=== PATIENT | female | born 1930 | race Caucasian/White ===

== ENCOUNTER 2017-02-25 06:52 | Day surgery (SDC) | payer MEDICARE, OTHER ==
--- NOTE | 2017-02-13 18:22 | HP ---
HISTORY AND PHYSICAL: DATE OF ADMISSION/SURGERY: 02/25/17 PATIENT OF: Dr. Girma Huang. (DICTATED BY BRITTANY PHILLIPS) CHIEF COMPLAINT: Left inguinal hernia. HISTORY OF PRESENT ILLNESS: Ms. Deluca is a pleasant 86-year-old female who was referred to our office for evaluation of left groin swelling. The patient is known to our practice from prior hemorrhoid surgery a few years ago. She was recently seen by Dr. Dugan and was noted to have a swelling in the left groin area consistent with possible left inguinal hernia. The patient was referred to our office and was seen by Dr. Huang for surgical evaluation and possible repair of left inguinal hernia. The patient herself notes that she had swelling for years, possibly dating back since her total abdominal hysterectomy in the . She does recall that after the surgery, there was a small lump in the area that always located on the left groin. She denied ever having any associated pain with that swelling. Over the years, the swelling has gotten progressively bigger, but yet the patient still denies any complaints of pain, nausea, vomiting, weight loss, or changes in the bowel habits. She has had colonoscopies in the past, which was remarkable for diverticulosis only and no evidence of diverticulitis or any colonic masses. The patient was seen by Dr. Huang last week and a CT scan was ordered as well for further evaluation of the left groin mass. Her CT scan revealed a complex left inguinal hernia with dominant direct portion measuring up to 3 x 7 x 7 cm, appears to contain portion of the greater omentum within the hernia sac. There was also a suggestion of a small indirect component of the inguinal hernia as well, but no definite masses or lymphadenopathy noted. Given these findings on the CT scan, the patient returned to the office today to discuss left inguinal hernia repair. She denies any changes since her last visit here about a week ago. She has been active overall after she had her right meniscus repaired approximately a year ago. PAST MEDICAL HISTORY: Significant for: 1. Osteoporosis. 2. Vaginal atrophy. 3. Osteoarthritis with multiple orthopedic consultations and prior surgery in the past. PAST SURGICAL HISTORY: Significant for: 1. Hemorrhoidectomy. 2. Total hysterectomy back in the . 3. She also had right knee arthroscopy and meniscal repair followed by right partial knee replacement approximately a year ago. CURRENT MEDICATIONS: Her medications at home include: 1. Calcitonin 200 units 1 spray in each nares alternating. 2. Aspirin 81 mg once daily. 3. Centrum Silver. 4. Multivitamin once daily. 5. Ocuvite 1 cap p.o. daily. 6. Ibuprofen 200 mg 2 tabs 3 times a day as needed for pain. 7. Vagifem 10 mcg 2 tabs p.o. twice a week. 8. Oxybutynin 5 mg 1 tablet daily. ALLERGIES: She reports allergies to COUMADIN, SHELLFISH PRODUCTS, and BONINE. FAMILY HISTORY: She denies any family history of colorectal malignancies. SOCIAL HISTORY: The patient is . She lives alone. 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 She never smoked. Denies alcohol intake and caffeine intake is minimal. REVIEW OF SYSTEMS: See HPI. Otherwise negative. She denies any headache, dizziness, blurred vision, or syncope. She has been hard of hearing in the past years and she used a hearing aid on a regular basis, but denies any significant changes lately. No chest pain, shortness of breath, cough, wheezing , or dyspnea. She denies any abdominal pain, nausea, vomiting, or recent changes in the bowel habits. She has been trying to eat more fiber and drink more water. Denies any significant constipation. She admits to the left groin swelling for years, but denies any pain or other symptoms related to that. No dysuria, hematuria, or urinary frequency. PHYSICAL EXAMINATION GENERAL: She is a pleasant elderly female, appears healthy and younger than stated age, in no acute distress or discomfort today. VITAL SIGNS: Blood pressure of 116/60, pulse of 72, temperature of 97.6. She weighs 132 pounds on a 5 feet 5 inch frame with BMI of 21. HEENT: Sclerae anicteric. EOMs intact. PERRLA. Oropharynx is pink and moist with no exudate. NECK: Supple. Trachea midline. No cervical adenopathy or thyromegaly. LUNGS: Clear to auscultation bilaterally. HEART: Regular rate and rhythm. Normal S1, S2 without rubs, murmurs, or gallops. BACK: Normal curvature. No CVA tenderness. BREAST EXAM: Deferred at this time. ABDOMEN: Soft, nontender, nondistended. Left inguinal hernia with the patient standing, there is a noticeable soft tissue reducible bulge that is nontender on palpation. With the patient supine, this bulge is almost disappeared, but however, there is a palpable mass noted measuring approximately 15 x 5 cm that will likely represent incarcerated omentum as shown on the CT scan. Again, there is no evidence of adenopathy in the groin area and there are no hernias or masses on the right side. The area was nontender on palpation and no organomegaly was noted. There is an old lower midline scar from prior hysterectomy noted that is well healed. There was no evidence of ventral hernia there. EXTREMITIES: Without cyanosis, clubbing, or edema. RECTAL: Exam deferred at this time. NEUROLOGIC: Grossly intact. ASSESSMENT: An 86-year-old female with a large left inguinal hernia. PLAN: I went on and discussed with Ms. Deluca proceeding with surgery today. She seems to be well informed and all her questions were answered today. I reviewed the CT scan with her and discussed the surgery and anticipated recovery time. Risks include but not limited to infection, bleeding, injury to adjacent structure, or possibly injury of the bowels given the fact that there is incarcerated omentum, possibly bowel, in the area. She seems to understand and wishes to proceed. We will obtain baseline blood work and recent EKG for clearance. The patient was already seen by her primary care physician a week ago for medical clearance, and we will follow up with her accordingly after the surgery. BRITTANY PHILLIPS CC: Dr. Bertram Clay * [id number]/[facility] #: [id number] [facility] CENTERJin
[~2017-02-25 06:52] MED LIST: Famotidine IV* 10 MG/ML 2 ML (20 mg) IV ONE; NS 0.9% 1000 ML* 1,000 ML IV SCH
[2017-02-25] MEDS ORDERED: ceFAZolin 2 GM PREMIX(*) 2 GM/50 ML BAG IVPB ONE (06:56)
[2017-02-25] MEDS ORDERED: Famotidine IV* 10 MG/ML 2 ML (20 mg) ONE (06:56)
[2017-02-25] MEDS ORDERED: fentaNYL* 50 MCG/ML 2 ML VIAL (100 MCG VIAL) ONE (08:25)
[2017-02-25] MEDS ORDERED: KETAMINE HCL* 50 MG/ML 10 ML VIAL ONE (08:25)
[2017-02-25] MEDS ORDERED: Midazolam* 1 MG/ML 2 ML VIAL (2 MG) ONE (08:25)
[2017-02-25] MEDS ORDERED: fentaNYL* 50 MCG/ML 2 ML VIAL (100 MCG VIAL) IV PRN (08:33)
[2017-02-25] MEDS ORDERED: Ondansetron INJ* 2 MG/ML VIAL IV PRN (08:33)
[2017-02-25] MEDS ORDERED: oxyCODONE/Acetamin 5/325 MG* TAB PO PRN (08:33)
[2017-02-25] MEDS ORDERED: PROCHLORPERAZINE INJ 5 MG/ML 2 ML VIAL IV PRN (08:33)
[2017-02-25] MEDS ORDERED: Lidocaine 1% INJ* 10 MG/ML 30 ML SDV ONE (09:03)
[2017-02-25] MEDS ORDERED: Bupivacaine 0.5% W/EPI SDV* 30 ML VIAL ONE (09:03)
[2017-02-25] MEDS ORDERED: Propofol* 10 MG/ML 20 ML BTL IV PUSH ONE (09:39)
[2017-02-25] MEDS ORDERED: Dexamethasone IV* 4 MG/ML 1 ML (4 MG) ONE (09:39)
[2017-02-25] MEDS ORDERED: Lidocaine 2% PF * 5 ML VIAL ONE ×2 (09:39→09:40)
[2017-02-25] MEDS ORDERED: Ondansetron INJ* 2 MG/ML VIAL ONE ×2 (09:39→11:43)
[2017-02-25] MEDS ORDERED: Ketorolac INJ* 30 MG/ML 1 ML VIAL ONE (10:26)
--- NOTE | 2017-02-25 10:37 | PN ---
Progress Note - Progress Note Note: Brief Operative Note: Preop Dx: Left Inguinal Hernia Postop Dx: same; indirect w/ incarcerated omentum Procedure: open repair Left inguinal hernia w/ mesh; resection portion of omentum Anesthesia: local/MAC Surgeon: Sal Asst: BRITTANY Hollis EBL: none Fluids: 400 ml RL Drains: none Specimen: contents of hernia sac Findings: dictated
[2017-02-25] MEDS ORDERED: HYDROcodone/ACETAMIN 5-325 MG* 1 TAB PO PRN (10:39)
[2017-02-25 11:48] VITALS: BP 119/68
--- NOTE | 2017-02-26 03:40 | OP ---
OPERATIVE REPORT: DATE OF OPERATION: 02/25/17 - [facility] DATE OF : 30 SURGEON: Girma Huang MD. GENERATOR ASSEMBLER: BRITTANY Abel. ANESTHESIOLOGIST: Liam Coley MD. ANESTHESIA: Local MAC. PRE-OP DIAGNOSIS: Incarcerated left inguinal hernia. POST-OP DIAGNOSIS: Incarcerated left inguinal hernia. OPERATIVE PROCEDURE: Open left inguinal hernia repair with mesh. ESTIMATED BLOOD LOSS: Minimal. IV FLUIDS: Crystalloids. SPECIMEN: Hernia contents (omentum). DRAINS: None. COMPLICATIONS: None. COUNTS: The instrument, needle, and sponge counts were correct. DESCRIPTION OF PROCEDURE: The patient was brought to the operating room and placed on table supine. Sequential compression devices were placed in both lower extremities and intravenous sedation was administered. The left groin was prepped and draped in the usual sterile fashion and a time-out was performed. After the time-out was performed, the local anesthetic was infiltrated as a field block in the left groin. An oblique incision was then created approximately 6 cm long and subcutaneous tissues were divided with cautery and the external oblique aponeurosis was identified. Additional anesthetic was infiltrated beneath this and then the aponeurosis was opened along the line of its fibers through the superficial ring. There was a large mass within the inguinal canal, which was quite firm. The sac was thickened. More proximally, the contents of sac were very soft and it was at this point that the sac was opened with cautery and there was viable omentum encountered. The omentum was serially divided between Nina clamps and ligated with 2 absorbable ties. The specimen was then submitted to pathology. The peritoneal sac was then run back and forth with 3-0 Polysorb to close it and reduced beyond the deep ring and then a plug of polypropylene was fashioned by hand and placed within the deep ring and sutured to the overlying musculature with 2-0 Polysorb. An onlay patch was then fashioned as well and this was sutured to the pubic tubercle, the shelving edge of the inguinal ligament and the conjoint tendon with interrupted 2-0 Polysorb. In order to aid in the closure, the round ligament was clamped and divided and ligated with 2-0 Polysorb as well. The lateral portion of the mesh was tucked beneath the external oblique aponeurosis and then the aponeurosis was run, closed with 2-0 Polysorb. Nelson's was closed with 3-0 Polysorb in interrupted fashion and the skin was closed with 4-0 Monocryl in subcuticular fashion. Steri-Strips were applied with dry dressing. The patient tolerated the procedure well, was awakened and transferred to Recovery in stable condition. CC: Bertram Clay MD* [id number]/[facility] #: [id number] MTDD
== END 2017-02-25 12:09 | disposition home or self-care (01) ==
LOC: OR 06:52
PROVIDERS: ATTEND Surgery
DX: K40.30 Unilateral inguinal hernia, with obstruction, without gangrene, not specified as recurrent (principal); M81.0 Age-related osteoporosis without current pathological fracture; M19.90 Unspecified osteoarthritis, unspecified site; Z86.718 Personal history of other venous thrombosis and embolism
CPT/HCPCS: 88302; 88341; 88342; C1781; J0690; J1100; J1885; J2001; J2250; J2405; J2704; J3010

== ENCOUNTER 2017-04-29 06:23 | Day surgery (SDC) | payer MEDICARE, OTHER ==
[2017-04-29 06:52] VITALS: BP 116/62
[2017-04-29] MEDS ORDERED: Lidocaine 1% INJ* 10 MG/ML 30 ML SDV ONE (07:15)
[2017-04-29] MEDS ORDERED: ceFAZolin 2 GM PREMIX(*) 2 GM/50 ML BAG IVPB ONE (07:42)
--- NOTE | 2017-04-29 09:10 | RAD ---
HISTORY: Line placement COMPARISONS: None VIEWS:1: Single frontal portable view of the chest at 7:42 AM FINDINGS: LINES AND TUBES: A left-sided chest port is noted from subclavian approach with the tip overlying the superior vena cava. CARDIOMEDIASTINAL SILHOUETTE: The cardiomediastinal silhouette is normal for portable technique. PLEURA: The costophrenic angles are sharp. No pleural abnormalities are noted. LUNG PARENCHYMA: The lungs are clear. ABDOMEN: The upper abdomen is clear. There is no subphrenic gas. There is no appreciable pneumothorax. BONES AND SOFT TISSUES: Degenerative changes are noted. IMPRESSION: LINES AND TUBES ABOVE. NO ACTIVE CARDIOPULMONARY DISEASE.
--- NOTE | 2017-04-29 09:12 | RAD ---
INDICATION: chest port placement COMPARISONS: None relevant TECHNIQUE: Fluoroscopy was provided for a vascular access procedure. Total fluoroscopy time is: 10.9 seconds FINDINGS: Spot images demonstrate a left-sided chest port with tip overlying the superior vena cava IMPRESSION: FLUOROSCOPY WAS PROVIDED FOR A VASCULAR ACCESS PROCEDURE CPT II Codes: 6045F
--- NOTE | 2017-04-30 12:46 | OP ---
CC: Jeff Rodríguez MD; Bertram Clay MD * DATE OF OPERATION: 04/29/17 - [facility] DATE OF : 30 SURGEON: Dr. Girma Huang. BARKING MACHINE FEEDER: None. ANESTHESIA: 1% lidocaine plain used locally. 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 OPERATIVE PROCEDURE: PowerPort placement, left subclavian approach. ESTIMATED BLOOD LOSS: Minimal. IV FLUIDS: Crystalloids. SPECIMENS: None. DRAINS: None. COMPLICATIONS: None. COUNT: Instrument, needle, and sponge counts correct. DESCRIPTION OF PROCEDURE: The patient was brought to the operating room and placed on the table supine. The patient's neck and chest were prepped and draped in the usual sterile fashion and time-out was performed. Local anesthetic was infiltrated for a left subclavian approach and after several passes, the left subclavian vein was accessed. Guidewire was positioned under fluoroscopic guidance into the superior vena cava. Additional local anesthetic was infiltrated into the left upper chest to create the subcutaneous pocket and counterincision was made at the insertion site. An 8- Turkish PowerPort catheter was backed down to the pocket and then the peal-away sheath and dilator were advanced over the guidewire into the superior vena cava under fluoroscopic guidance. The dilator and guidewire were removed and the catheter was advanced into the superior vena cava and then the catheter was cut to an appropriate length, connected to the PowerPort which was placed into the pocket. The port was drawn and flushed easily. The port was secured to the muscle with 2-0 Surgipro and then the incisions were closed in two layers with 3 -0 Polysorb for the subcutaneous tissues and 4-0 Monocryl for the skin. Steri- strips were applied and the access needle was placed and the port was flushed with heparinized saline. Tegaderm dressing was applied and the patient tolerated this procedure well and was transferred to Recovery stable. [id number]/[facility] #: [id number] MTDD
== END 2017-04-29 09:16 | disposition home or self-care (01) ==
LOC: OR 06:23
PROVIDERS: ATTEND Surgery
DX: C57.01 Malignant neoplasm of right fallopian tube (principal)
CPT/HCPCS: 71010; C1788; J0690; J1642; J2001